=== PATIENT | male | born 2000 | race African-American/Black ===

== ENCOUNTER 2023-09-09 13:41 | Emergency (ER) | payer OTHER ==
[2023-09-09] MEDS ORDERED: Ketorolac Tromethamine 30 MG/ML VIAL ONE (14:37)
[2023-09-09] MEDS ORDERED: HYDROcodone/Acetaminophen 5/325 mg Tablet ONE (14:38)
== END 2023-09-09 15:00 ==
LOC: ERS 13:41
DX: G50.0 Trigeminal neuralgia (principal)
CPT/HCPCS: 96372; 99283; J1885